=== PATIENT | female | born 2000 | race Two or more races ===

== ENCOUNTER 2019-03-27 06:41 | Inpatient (IN) | payer SELFPAY ==
[2019-03-27 08:10] LABS: BACTERIA (WET MOUNT) 3+ BACTERIA SEEN; EPITHELIALS (WET MOUNT) 4+ EPITHELIALS SEEN; RBCS (WET MOUNT) FEW RBCS SEEN; T.VAGINALIS (WET MOUNT) NO TRICHOMONAS SEEN; WBCS (WET MOUNT) 3+ WBCS SEEN; YEAST (WET MOUNT) NO YEAST SEEN
[2019-03-27] MEDS: RINGERS SOLUTION,LACTATED 1,000 ML IV PRN ×2 (08:25→11:37)
[2019-03-27] MEDS ORDERED: BETAMET ACET/BETAMET NA INJ 6 MG/1 ML ONE (08:26)
[2019-03-27] MEDS ORDERED: PENICILLIN G-K 5 MILLION UNIT VIAL ONE ×4 (08:42→21:21)
[2019-03-27] MEDS ORDERED: OXYTOCIN 10 UNIT/ML VIAL ONE (08:42)
[2019-03-27] MEDS ORDERED: OXYTOCIN/NORMAL SALINE 20 UNIT/1,000 ML RTUINJ ONE (08:42)
[2019-03-27] MEDS ORDERED: LIDOCAINE 1% INJ-PF (10 MG/ML) 30 ML SDV ONE (08:42)
[2019-03-27] MEDS ORDERED: MISOPROSTOL 0.2 MG TABLET ONE (08:42)
[2019-03-27] MEDS ORDERED: MAGNESIUM SULFATE 4 GM/100 ML RTUPB IV ONE ×2 (08:43→09:00)
[2019-03-27] MEDS ORDERED: MAGNESIUM SULFATE 20 GM/500 ML RTUINJ IV ONE ×2 (08:43→19:05)
[2019-03-27] MEDS ORDERED: PENICILLIN G POTASSIUM 5,000,000 UNIT in DEXTROSE 5%-WATER 100 ML IV ONE (08:50)
[2019-03-27] MEDS ORDERED: PROMETHAZINE HCL INJ 25 MG/1 ML VIAL ONE (09:02)
[2019-03-27] MEDS ORDERED: NALBUPHINE HCL INJ 10 MG/1 ML AMPULE ONE ×2 (09:02→13:06)
--- NOTE | 2019-03-27 09:13 | Admission Physical ---
Datetime Report Generated by CPN: 03/27/2019 09:13 CURRENT ADMISSION Chief Complaint: Uterine Contractions; Maternal Discomfort Indication for Induction: Not Applicable Admit Impression : , Intrauterine Admit Plan: Admit to Unit; Initiate Labor Protocol ALLERGIES Medication Allergies: No Known Allergies (03/27/2019) OBSTETRICAL HISTORY EDC: 05/08/2019 00:00 : 1 Para: 0 Term: 0 : 0 SAB: 0 IAB: 0 Ectopic: 0 Livin Cesareans: 0 VBACs: 0 Multiple Births: 0 Current Procedures: Ultrasound Obstetrical History Comments: G1- current SEE RECORDS Alcohol: No Marijuana : No Cocaine: No Other Illicit Drugs: No Cigarettes: Never Smoker. [id number] PHYSICAL EXAM General: Normal HEENT: Deferred Neurologic: Normal Thyroid: Deferred Heart: Normal Lungs: Normal Breast: Deferred Back: Deferred Abdomen: Normal Genitourinary Exam: Normal Extremities: Normal DTRs: Deferred Pelvic Type: Adequate Physical Exam Comments: no significant findings Cervical exams per RN as noted Vital Signs: Reviewed FETUS A EGA: 34.0 Monitoring: External US FHR- Baseline: 130 Variability: Moderate 6-25bpm Accelerations: 15X15 Decelerations: None FHR Category: Category I Presentation: Vertex Admit Comment: Pt presented with contractions, she is 34.0 by definite LMP 08/01/18. She has only had one visit at [facility] yesterday, no labs done. She has not been seen by any other medical facility this . No U/S available. She denies any significant medical history, surgery, hospitalization. She is yina regularly and requests pain medication, plans for epidural if labor continues. Pt recieved Betamethasone injection, Mag Sulfate ordered, GBS, GC collected, US ordered. Martii used for communication. Plan per Dr. Haile. PLANS FOR LABOR AND DELIVERY Labor and Delivery: None Pain Management: Epidural Feeding Preference: Breast Benefit of Breast Feed Discussed: Yes INFORMED CONSENT Assignment: Patricia Shaikh MD Signature: with User ID: [email or web address] : with User ID: [email or web address]
[2019-03-27] MEDS ORDERED: MAGNESIUM SULFATE 20 GM/500 ML RTUINJ IV PRN (09:30)
[2019-03-27 09:33] LABS: CHLAM PCR DETECTED (NOT DETECT)
[2019-03-27] MEDS ORDERED: AZITHROMYCIN INJ 500 MG VIAL IV ONE ×2 (09:40→09:55)
[2019-03-27] MEDS ORDERED: METRONIDAZOLE 500 MG TABLET PO ONE (09:46)
[2019-03-27] MEDS ORDERED: METRONIDAZOLE 500 MG TABLET ONE (09:55)
[2019-03-27 10:12] LABS: ABSOLUTE LYMPHOCYTES (AUTO) 2.2 10^3/uL (0.5-4.7); ABSOLUTE MONOCYTES (AUTO) 0.4 10^3/uL (0.1-1.4); ABSOLUTE NEUT (AUTO) 4.8 10^3/uL (1.7-8.2); BASOPHILS % (AUTO) 0.4 % (0-2); EOSINOPHILS % (AUTO) 0.5 % (0-6); HEMATOCRIT 32.2 % (36.0-47.0); HEMOGLOBIN 10.9 g/dL (12.0-15.5); LYMPHOCYTES % (AUTO) 29.4 % (13-45); MEAN CORPUSCULAR HEMOGLOBIN 31.3 pg (27.0-33.4); MEAN CORPUSCULAR HGB CONC 33.8 g/dL (32.0-36.0); MEAN CORPUSCULAR VOLUME 93 fl (80-97); MONOCYTES % (AUTO) 5.1 % (3-13); RED BLOOD COUNT 3.48 10^6/uL (3.72-5.28); RED CELL DISTRIBUTION WIDTH 13.4 % (11.5-14.0); SEGMENTED NEUTROPHILS % (AUTO) 64.6 % (42-78); TOTAL CELLS COUNTED % (AUTO) 100 %; WHITE BLOOD COUNT 7.4 10^3/uL (4.0-10.5)
[2019-03-27 10:33] LABS: PLATELET COUNT 75 10^3/uL (150-450)
[2019-03-27 10:41] LABS: APPEARANCE,URINE SLIGHTLY-CLOUDY; BILIRUBIN,URINE NEGATIVE (NEGATIVE); COLOR,URINE YELLOW; GLUCOSE, URINE NEGATIVE (NEGATIVE); KETONES,URINE NEGATIVE (NEGATIVE); LEUKOCYTE ESTERASE,URINE MODERATE (NEGATIVE); NITRITE,URINE NEGATIVE (NEGATIVE); PROTEIN,URINE 30 mg/dL (NEGATIVE); URINE SPECIFIC GRAVITY 1.019; UROBILINOGEN,URINE NEGATIVE mg/dL (<2.0)
[2019-03-27 10:59] LABS: URINE AMPHETAMINES SCREEN NEGATIVE; URINE BARBITURATES SCREEN NEGATIVE; URINE BENZODIAZEPINES SCREEN NEGATIVE; URINE COCAINE SCREEN NEGATIVE; URINE MARIJUANA (THC) SCREEN NEGATIVE; URINE METHADONE SCREEN NEGATIVE; URINE PHENCYCLIDINE SCREEN NEGATIVE
--- NOTE | 2019-03-27 11:40 | RADIOLOGY REPORT (SQ) ---
EXAM DESCRIPTION: U/S OB 14+ TRNABD 1GES W/O DOP COMPLETED DATE/TIME: 03/27/2019 11:01 am REASON FOR STUDY: complete ob u/s with dating COMPARISON: None. TECHNIQUE: Static and Dynamic grayscale imaging performed of gravid uterus using transabdominal appr oac. Additional selected color Doppler and spectral images recorded. All stored on PACS. LIMITATIONS: None. FINDINGS: FETUSES SEEN:1 EGA: 36 weeks 5 days. Calculated using BPD,FL,HC,AC documented on images. Clinical dates are unknown . ANALI: 04/19/2019 EFW: 2,869 grams PERCENTILE: 75th CALI: 6.8 PLACENTA: Fundal in location GRADE: I PRESENTATION: Cephalic. ANATOMY: HEART RATE: 137 beats per minute. FOUR CHAMBER HEART: Not visualized. THREE VESSEL CORD: Yes. CORD INSERTION: Not visualized. KIDNEYS AND BLADDER: Visualized. Appear normal. STOMACH: Visualized. Appears normal. SPINE: Not visualized. BRAIN AND LATERAL VENTRICLES: Not visualized. OTHER: No other significant finding. MATERNAL ADNEXA: Maternal ovaries not visualized. CERVICAL LENGTH: 3.3 cm. Closed. OTHER: No other significant finding. IMPRESSION: Limited study due to age and lie. Estimated gestational age is 36 weeks 5 days. No visualize anomalies. Trimester of : Third trimester - 28 weeks to delivery. TECHNICAL DOCUMENTATION: JOB ID: [id number] [employer]- All Rights Reserved Reading location - IP/workstation name: [email or web address]
[2019-03-27] MEDS: PENICILLIN G POTASSIUM 2,500,000 UNIT in DEXTROSE 5%-WATER 50 ML IV SCH ×3 (13:20→21:35)
[2019-03-27] MEDS ORDERED: MORPHINE SULFATE 10 MG/ML INJ IM ONE (16:41)
[2019-03-27] MEDS ORDERED: MORPHINE SULFATE 10 MG/ML INJ ONE (16:43)
[2019-03-27] MEDS ORDERED: CEFTRIAXONE INJ 1000 MG VIAL ONE (16:43)
[2019-03-27] MEDS: BETAMET ACET/BETAMET NA INJ 6 MG/1 ML IM SCH (17:09)
[2019-03-27] MEDS ORDERED: ACETAMINOPHEN 325 MG TABLET PO ONE (20:10)
[2019-03-27] MEDS ORDERED: ACETAMINOPHEN 325 MG TABLET ONE (20:28)
[2019-03-28] MEDS ORDERED: PENICILLIN G-K 5 MILLION UNIT VIAL ONE ×2 (01:17→05:22)
[2019-03-28] MEDS: PENICILLIN G POTASSIUM 2,500,000 UNIT in DEXTROSE 5%-WATER 50 ML IV SCH ×3 (01:24→13:15)
[2019-03-28 01:25] LABS: ABSOLUTE BASOPHILS # (AUTO) 0.1 10^3/uL (0.0-0.2); ABSOLUTE LYMPHOCYTES (AUTO) 1.9 10^3/uL (0.5-4.7); ABSOLUTE MONOCYTES (AUTO) 0.6 10^3/uL (0.1-1.4); BASOPHILS % (AUTO) 0.5 % (0-2); LYMPHOCYTES % (AUTO) 15.3 % (13-45); MEAN CORPUSCULAR HEMOGLOBIN 30.6 pg (27.0-33.4); MEAN CORPUSCULAR HGB CONC 33.3 g/dL (32.0-36.0); MEAN CORPUSCULAR VOLUME 92 fl (80-97); MONOCYTES % (AUTO) 4.9 % (3-13); RED BLOOD COUNT 3.59 10^6/uL (3.72-5.28); RED CELL DISTRIBUTION WIDTH 13.2 % (11.5-14.0); SEGMENTED NEUTROPHILS % (AUTO) 79.3 % (42-78); TOTAL CELLS COUNTED % (AUTO) 100 %; WHITE BLOOD COUNT 12.6 10^3/uL (4.0-10.5)
[2019-03-28 01:31] LABS: PLATELET COUNT 76 10^3/uL (150-450)
[2019-03-28] MEDS ORDERED: DIPHENHYDRAMINE HCL 50 MG/ML VIAL ONE (04:40)
[2019-03-28] MEDS ORDERED: BETAMET ACET/BETAMET NA INJ 6 MG/1 ML ONE (04:45)
[2019-03-28] MEDS ORDERED: CEFTRIAXONE INJ 1000 MG VIAL ONE (05:33)
[2019-03-28] MEDS: CEFTRIAXONE INJ 1000 MG VIAL IV SCH ×2 (05:53→13:22)
[2019-03-28] MEDS ORDERED: MISOPROSTOL 0.2 MG TABLET PR ONE (08:23)
[2019-03-28] MEDS ORDERED: OXYTOCIN/NORMAL SALINE 20 UNIT/1,000 ML RTUINJ IV PRN (08:57)
[2019-03-28] MEDS ORDERED: ACETAMINOPHEN WITH CODEINE #3 TABLET PO PRN (08:57)
[2019-03-28] MEDS ORDERED: ZOLPIDEM TARTRATE 5 MG TABLET PO PRN (08:57)
[2019-03-28] MEDS ORDERED: DIPH/PERTUSS(ACELL)/TETANUS VAC/PF 0.5 ML SYR (>=10YO) IM PRN (08:57)
[2019-03-28] MEDS ORDERED: DIBUCAINE 1% OINTMENT 56 GM TP PRN (08:57)
[2019-03-28] MEDS ORDERED: MEASLES,MUMPS&RUBELLA VACC/PF 0.5 ML VIAL SUBCUT PRN (08:57)
[2019-03-28] MEDS ORDERED: BENZOCAINE/MENTHOL AEROSOL SPRAY 56 ML TOP PRN (08:57)
[2019-03-28] MEDS ORDERED: IBUPROFEN 800 MG TABLET ONE (09:22)
[2019-03-28 11:36] LABS: HEPATITIS C VIRUS AB 0.2 s/co ratio (0.0-0.9)
[2019-03-28] MEDS: DOCUSATE SODIUM 100 MG CAPSULE PO SCH ×2 (13:14→19:34)
[2019-03-28] MEDS: FERROUS SULFATE 325 MG TABLET PO SCH ×2 (13:15→19:34)
[2019-03-28] MEDS: PRENATAL VITAMIN W DHA CAPSULE PO SCH (13:15)
[2019-03-28] MEDS: SENNOSIDES/DOCUSATE 8.6-50 MG 1 EACH TABLET PO SCH (13:15)
[2019-03-28] MEDS: BETAMET ACET/BETAMET NA INJ 6 MG/1 ML IM SCH (13:17)
[2019-03-28] MEDS: IBUPROFEN 800 MG TABLET PO SCH ×2 (13:59→21:23)
[2019-03-29] MEDS: IBUPROFEN 800 MG TABLET PO SCH ×3 (05:28→21:30)
[2019-03-29 06:25] LABS: HEMATOCRIT 24.4 % (36.0-47.0); MEAN CORPUSCULAR HEMOGLOBIN 31.2 pg (27.0-33.4); MEAN CORPUSCULAR HGB CONC 33.4 g/dL (32.0-36.0); MEAN CORPUSCULAR VOLUME 93 fl (80-97); RED BLOOD COUNT 2.62 10^6/uL (3.72-5.28); RED CELL DISTRIBUTION WIDTH 13.3 % (11.5-14.0); WHITE BLOOD COUNT 9.8 10^3/uL (4.0-10.5)
[2019-03-29 06:35] LABS: HEMOGLOBIN 8.1 g/dL (12.0-15.5)
[2019-03-29 06:36] LABS: PLATELET COUNT 49 10^3/uL (150-450)
[2019-03-29 08:10] LABS: HEPATITS B SURFACE ANTIGEN Negative (Negative)
[2019-03-29] MEDS: SENNOSIDES/DOCUSATE 8.6-50 MG 1 EACH TABLET PO SCH (10:45)
[2019-03-29] MEDS: FERROUS SULFATE 325 MG TABLET PO SCH ×2 (10:45→17:44)
[2019-03-29] MEDS: PRENATAL VITAMIN W DHA CAPSULE PO SCH (10:45)
[2019-03-29] MEDS: DOCUSATE SODIUM 100 MG CAPSULE PO SCH ×2 (10:45→17:44)
--- NOTE | 2019-03-29 12:05 | PDOC PROGRESS REPORT ---
Subjective-OB Progress Note for:: 03/29/19 Subjective: Pt is PPD #1, Reese used for communication, pt resting denies pain, reports normal bleeding, no difficulty voiding and regular diet. She is not aware of any family history of bleeding or blood disorders. She is bottlefeeding. Denies questions or concerns. Physical Exam (OB) Vital Signs: Temp Pulse Resp BP Pulse Ox 97.9 F 79 16 100/56 L 100 03/29/19 09:00 03/29/19 09:00 03/29/19 09:00 03/29/19 09:00 03/29/19 09:00 Intake & Output 03/28/19 03/29/19 03/30/19 06:59 06:59 06:59 Intake Total 1284 1000 Balance 1284 1000 Weight 59.9 kg - Lochia Lochia Amount: Small 10-25 ml Lochia Color: Rubra/Red - Abdomen Description: Tender, Soft Hernia Present: No Fundal Description: Firm, Midline Fundal Height: u/u - u/2 Objective-Diagnostic Laboratory: 03/29/19 05:45 03/29/19 05:45 WBC 9.8 RBC 2.62 L Hgb 8.1 L D Hct 24.4 L MCV 93 MCH 31.2 MCHC 33.4 RDW 13.3 Plt Count 49 L Assessment and Plan(PN) - Assessment and Plan (1) Thrombocytopenia Is this a current diagnosis for this admission?: Yes Plan: Hematology consult placed. Informed pt that her Platelets were abnormally low, she denies knowledge of personal or family history. (2) Second-degree perineal laceration during delivery Is this a current diagnosis for this admission?: Yes (3) Vacuum-assisted vaginal delivery Is this a current diagnosis for this admission?: Yes (4) Supervision of with insufficient care, unspecified trimester Is this a current diagnosis for this admission?: Yes - Time Spent with Patient Time with patient: Less than 15 minutes Medications reviewed and adjusted accordingly: Yes - Disposition Anticipated Discharge: Home Within: within 24 hours, within 48 hours
--- NOTE | 2019-03-29 13:51 | Progress Note ---
Provider Note Provider Note: I met with the patient briefly today. I was consulted for thrombocytopenia. However, after over 15 minutes trying to connect using the "[employer]" Danish translation system, I was unable to connect with combat engineer. I discussed patient with Dr. Florez and I looked and the peripheral blood smear myself. Her estimated manual platelet count was 150-170K. This may be pseudothrombocytopenia. I have asked lab to draw using platelet clumping protocol. I will try again to see patient tomorrow morning.
[2019-03-29] MEDS: ACETAMINOPHEN WITH CODEINE #3 TABLET PO PRN (17:44)
[2019-03-30] MEDS: ACETAMINOPHEN WITH CODEINE #3 TABLET PO PRN (05:27)
[2019-03-30] MEDS: IBUPROFEN 800 MG TABLET PO SCH (05:54)
[2019-03-30 06:13] LABS: ABSOLUTE BASOPHILS # (AUTO) 0.1 10^3/uL (0.0-0.2); ABSOLUTE EOSINOPHILS # (AUTO) 0.1 10^3/uL (0.0-0.6); ABSOLUTE LYMPHOCYTES (AUTO) 2.3 10^3/uL (0.5-4.7); ABSOLUTE MONOCYTES (AUTO) 0.6 10^3/uL (0.1-1.4); ABSOLUTE NEUT (AUTO) 7.2 10^3/uL (1.7-8.2); BASOPHILS % (AUTO) 1.3 % (0-2); EOSINOPHILS % (AUTO) 0.5 % (0-6); HEMATOCRIT 25.8 % (36.0-47.0); HEMOGLOBIN 8.7 g/dL (12.0-15.5); LYMPHOCYTES % (AUTO) 22.4 % (13-45); MEAN CORPUSCULAR HEMOGLOBIN 31.2 pg (27.0-33.4); MEAN CORPUSCULAR HGB CONC 33.8 g/dL (32.0-36.0); MEAN CORPUSCULAR VOLUME 93 fl (80-97); MONOCYTES % (AUTO) 5.8 % (3-13); RED BLOOD COUNT 2.79 10^6/uL (3.72-5.28); RED CELL DISTRIBUTION WIDTH 13.3 % (11.5-14.0); TOTAL CELLS COUNTED % (AUTO) 100 %; WHITE BLOOD COUNT 10.3 10^3/uL (4.0-10.5)
[2019-03-30 06:40] LABS: PLATELET COUNT 70 10^3/uL (150-450)
--- NOTE | 2019-03-30 09:14 | PDOC CONSULTATION ---
Consultation Consult Date: 03/30/19 Provider Consulted: DANIEL CARVALHO Consult reason:: Hematology/Oncology consultation was requested for thrombocytopenia History of Present Illness Admission Date/PCP: 03/27/19 08:51 History of Present Illness: ARMIDA CASTILLO is a 18 year old female who gave 2 days ago to her first child. This was her first . Her baby boy is doing well. She states that she has never been told that her blood counts were low and does not know what platelets are or what they do. She denies any history of bleeding problems. I have no CBCs prior to this admission and she states that she does not know if she has ever have blood counts drawn before. She denies any difficulty during this . Today, she states that she has had a normal amount of bleeding after childbirth and has some pain in her left side that is not going away. She is unsure what the pain is from. She is having normal BMs since baby was born. Past Medical History Medical History: None Past Surgical History Past Surgical History: Reports: None Social History Information Source: Patient Lives with: Spouse/Significant other Smoking Status: Never Smoker Frequency of Alcohol Use: None Drugs: None Hx Prescription Drug Abuse: No Past Social History Note: Patient is and lives with . She is not currently working. 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 Family History Parental Family History Reviewed: Yes - Father of unknown cause. Mother still living. Children Family History Reviewed: NA Sibling(s) Family History Reviewed.: Yes Medication/Allergy Home Medications: No Home Medications 03/27/19 Vit,Calc76/Iron/Folic [Prenatabs Rx Tablet] 1 tab PO DAILY 03/27/19 Allergies/Adverse Reactions: No Known Allergies Allergy (Unverified 03/27/19 07:57) Review of Systems Constitutional: ABSENT: fever(s), headache(s) Eyes: ABSENT: visual disturbances Ears: ABSENT: hearing changes Nose, Mouth, and Throat: ABSENT: sore throat Cardiovascular: ABSENT: chest pain Respiratory: ABSENT: dyspnea Gastrointestinal: PRESENT: as per HPI Genitourinary: ABSENT: dysuria Integumentary: ABSENT: rash Hematologic/Lymphatic: ABSENT: easy bleeding Physical Exam Vital Signs: Temp Pulse Resp BP Pulse Ox 98.7 F 93 18 100/69 100 03/29/19 19:56 03/29/19 19:56 03/29/19 19:56 03/29/19 19:56 03/29/19 19:56 Intake & Output 03/29/19 03/30/19 03/31/19 06:59 06:59 06:59 Intake Total 1000 1000 Balance 1000 1000 General appearance: PRESENT: no acute distress, well-developed, well-nourished Exam: 18 year old female. Exam was performed with the assistance of the "[employer]" translation system, as patient only speaks Serbian. Head exam: PRESENT: normocephalic Eye exam: PRESENT: EOMI, PERRLA Mouth exam: PRESENT: tongue midline Neck exam: ABSENT: lymphadenopathy, tenderness Respiratory exam: PRESENT: clear to auscultation nanci, unlabored Cardiovascular exam: PRESENT: RRR GI/Abdominal exam: PRESENT: soft, tenderness. ABSENT: organolmegaly Extremities exam: ABSENT: pedal edema Musculoskeletal exam: PRESENT: normal inspection Neurological exam: PRESENT: alert, awake Psychiatric exam: PRESENT: appropriate affect Skin exam: PRESENT: normal color Results Laboratory Results: 03/30/19 06:03 03/30/19 06:03 WBC 10.3 RBC 2.79 L Hgb 8.7 L Hct 25.8 L MCV 93 MCH 31.2 MCHC 33.8 RDW 13.3 Plt Count 70 L Seg Neutrophils % 70.0 03/27/19 10:55 Catheterized Urine Urine Culture - Final Mixed Urogenital Shea 03/27/19 08:28 Vaginal/Anorectal Group B Streptococcus Culture - Final NO GROUP B STREPTOCOCCUS RECOVERED Impressions: Obstetrics Ultrasound 03/27/19 00:00 IMPRESSION: Limited study due to age and lie. Estimated gestational age is 36 weeks 5 days. No visualize anomalies. Trimester of : Third trimester - 28 weeks to delivery. I reviewed her peripheral blood smear and found no evidence of thrombocytopenia. Estimated PLT count was 150. Today's CBC was drawn in Na Citrate tube to avoid platelet clumping and automated PLT count still only 70. Assessment & Plan - Diagnosis (1) Thrombocytopenia Is this a current diagnosis for this admission?: Yes Plan: I have explained that sometimes platelets are lower with childbirth. I have also explained to the patient that we usually do not see problems with bleeding until PLT are <30. At this point, I would not recommend any further work-up or treatment. I would like to see her again in the office in about 6 weeks and repeat the CBC at that time. I will arrange. I am OK with discharge today, from my standpoint. - Plan Summary Plan Summary: Thank you for this consultation. Please call with any other concerns. Patient was discussed with the nurse cargo handler on the floor this morning.
--- NOTE | 2019-03-30 09:28 | PDOC DISCHARGE SUMMARY ---
Final Diagnosis Discharge Date: 03/30/19 - PP Day#2, doing well, Seen by Dr Solano this morning, she is clearing pt to go home today w/ follow up in her office to repeat CBC in 6 wks. Pt with very limited PNC, +chlamydia this , tx'd per pharmacy. O+, Rubella Immune, Breast and bottlefeeding - Final Diagnosis (1) Chlamydia infection affecting Is this a current diagnosis for this admission?: Yes (2) Thrombocytopenia Is this a current diagnosis for this admission?: Yes (3) Supervision of with insufficient care, unspecified trimester Is this a current diagnosis for this admission?: Yes (4) Vacuum-assisted vaginal delivery Is this a current diagnosis for this admission?: Yes (5) Second-degree perineal laceration during delivery Is this a current diagnosis for this admission?: Yes Discharge Data - Discharge Medication Prescriptions: Ferrous Sulfate [Feosol 325 mg Tablet] 325 mg PO DAILY #30 tablet Ibuprofen [Motrin 800 mg Tablet] 800 mg PO Q8 #60 tablet Home Medications: Vit,Calc76/Iron/Folic [Prenatabs Rx Tablet] 1 tab PO DAILY 03/27/19 Ferrous Sulfate [Feosol 325 mg Tablet] 325 mg PO DAILY #30 tablet 03/30/19 Ibuprofen [Motrin 800 mg Tablet] 800 mg PO Q8 #60 tablet 03/30/19 Reason(s) for Admission: Onset of Labor Procedures: None Intrapartum Procedure(s): Spontaneous Vaginal Delivery Complication(s): Laceration-Periurethral Laceration-Degree: 1st - Diagnosis Test Laboratory: Temp Pulse Resp BP Pulse Ox 98.7 F 93 18 100/69 100 03/29/19 19:56 03/29/19 19:56 03/29/19 19:56 03/29/19 19:56 03/29/19 19:56 03/27/19 03/27/19 03/27/19 07:00 09:39 10:11 RBC 3.48 L Hgb 10.9 L Hct 32.2 L Urine Opiates Screen Cancelled NEGATIVE 03/28/19 03/29/19 03/30/19 01:06 05:45 06:03 RBC 3.59 L 2.62 L 2.79 L Hgb 11.0 L 8.1 L D 8.7 L Hct 33.0 L 24.4 L 25.8 L Urine Opiates Screen - Discharge information/Instructions Discharge Activity: Activity As Tolerated, No Lifting Over 10 Pounds, Pelvic Rest Discharge Diet: As Tolerated, Regular Disposition: HOME, SELF-CARE Follow up with: [facility] in: 4, Weeks - Pt [facility] in 4-6 wks, Also to f/u with Dr Solano in 4 wks for CBC chk.
[2019-03-30 10:43] VITALS: BP 100/69
[2019-03-30] MEDS: SENNOSIDES/DOCUSATE 8.6-50 MG 1 EACH TABLET PO SCH (12:21)
[2019-03-30] MEDS: PRENATAL VITAMIN W DHA CAPSULE PO SCH (12:21)
[2019-03-30] MEDS: FERROUS SULFATE 325 MG TABLET PO SCH (12:21)
[2019-03-30] MEDS: DOCUSATE SODIUM 100 MG CAPSULE PO SCH (12:21)
--- NOTE | 2019-04-01 13:14 | Delivery Summary ---
Del Sum A-C Datetime Report Generated by CPN: 04/01/2019 13:14 DELIVERY PERSONNEL DELIVERY PERSONNEL: [id number] Delivery Doctor:: Patricia Shaikh MD Anesthesiologist:: Vero Law MD Labor and Delivery Nurse:: Tete Cohn RNspace planner Nurse:: Maryan Boyd RN Nursery Nurse:: Milvia Ruelas RN Human Resources Department Supervisor/AIRCRAFT CLEANER: Natividad Kelly, EQUIPMENT SERVICE TECHNICIAN MATERNAL INFORMATION Delivery Anesthesia: None Medications After Delivery: Pitocin Bolus-Please Comment; Cytotec 1000mcg Per Rectum/Vagina Meds After Delivery Comment: 1000mcg @ [address] Younger Estimated Blood Loss (ml): 200 Delivery QBL: 200 Maternal Complications: Other Complication Details: terminal mec/1 visit Complication Details: Labor Provider Comments: VAVD of a viable male at 0815 w/ DEL w/left compound hand presentation; APGARS 8, 8; lac repaired LABOR SUMMARY EDC: 05/08/2019 00:00 No. Babies in Womb: 1 Attempted: No Labor Anesthesia: None LABOR INFORMATION Reason for Induction: Not Applicable Onset of Labor: 03/28/2019 00:23 Complete Dilatation: 03/28/2019 06:31 Oxytocin: N/A Group B Beta Strep: 1 NO GROUP B STREPTOCOCCUS RECOVERED Group B Beta Strep: unknown Antibiotics # of Doses: 10 Antibiotics Time of Last Dose: 0553 Name of Antibiotic Given: PCN/Flagyl/Rocephin/Zithromax Steroids Given: Full Course; < 24 Hours before Delivery Reason Steroids Not Administered: Imminent Delivery MEMBRANES Membranes Rupture Method: Spontaneous Rupture of Membranes: 03/28/2019 02:54 Length of Rupture (hr): 5.35 Amniotic Fluid Color: Clear Amniotic Fluid Amount: Moderate Amniotic Fluid Odor: Normal STAGES OF LABOR Stage 1 hr: 6 Stage 1 min: 8 Stage 2 hr: 1 Stage 2 min: 44 Stage 3 hr: 0 Stage 3 min: 5 Total Time in Labor hr: 7 Total Time in Labor min: 57 VAGINAL DELIVERY Episiotomy: None Laceration #1: Vaginal Laceration Extension #1: Second Degree Laceration #2: Vaginal Laceration Extension #2: Second Degree Laceration #3: Periurethral Laceration Extension #3: First Degree Other Laceration: R Vaginal Wall w/ repair. Periurethral w/ repair. Laceration Repair: Yes Laceration Repair Note: Right lateral vaginal wall lac and right periurethral lac repaired w/3-0 chromic; midline/left vaginal 2nd deg lac repaired w/2-0 Vicryl Sponge Count Correct: Yes Sharps Count Correct: Yes CSECTION DELIVERY CSection Incision: Lower Uterine Transverse BABY A INFORMATION Infant Delivery Date/Time: 03/28/2019 08:15 Method of Delivery: Vaginal Born in Route : No : N/A Forceps: N/A Vacuum Extraction: Successful Shoulder Dystocia : No ASSISTED DELIVERY BABY A Indication for Assisted Delivery: maternal exhaustion Station Vacuum/Forcep Apply: +2 Position Vacuum/Forcep Apply: Right Occipital Anterior Vacuum Number of Pulls: 12 Vacuum Number of PopOffs: 1 Vacuum Maximum Pressure Obtained: 500 mm/Hg Reduce Pressure btwn Ctx: Yes Vacuum Flexo Press Operator: Kiwi Total Time Vacuum Applied: 20 Vacuum/Forceps Comment: Vacuum placed at +2 station; (12) pulls at 500 mmhg and released in between contractions; (1) pop off and vacuum not replaced PRESENTATION/POSITION BABY A Presentation: Cephalic Presentation: Cephalic Cephalic Presentation: Vertex Vertex Position: Left Occipital Anterior Breech Presentation: N/A PLACENTA INFORMATION BABY A Placenta Delivery Time : 03/28/2019 08:20 Placenta Method of Delivery: Spontaneous Placenta Status: Delivered SCORES BABY A Heart Rate 1 min: >100 bpm Resp Effort 1 min: Good Cry Reflex Irritability 1 min: Cough or Sneeze or Pulls Away Muscle Tone 1 min: Some Flexion of Extremities Color 1 min: Body [place], Extremities Blue Resuscitation Effort 1 min: Tactile Stimulation SCORE 1 MIN: 8 Heart Rate 5 min: >100 bpm Resp Effort 5 min: Good Cry Reflex Irritability 5 min: Cough or Sneeze or Pulls Away Muscle Tone 5 min: Some Flexion of Extremities Color 5 min: Body [place], Extremities Blue Resuscitation Effort 5 min: Tactile Stimulation SCORE 5 MIN: 8 INFANT INFORMATION BABY A Gestational Age at Delivery: 34.1 Gestational Status: Late - 34- 36.6 Weeks Outcome : Liveborn Condition : Stable Infant Sex: Male IDENTIFICATION BABY A Verification Date/Time: 03/28/2019 09:04 ID Band Number: [id number] Mother's Name Verified: Yes RN Verifying : B Baidy RN Additional Verifying Personnel: V Betitok RN WEIGHT/LENGTH BABY A Infant Birthweight (gm): 3459 Infant Weight (lb): 7 Weight (oz): 10 Length (in): 20.50 Length (cm): 52.07 CORD INFORMATION BABY A No. Cord Vessels: 3 Nuchal Cord : N/A Cord Blood Taken: Yes-For Eval (Mom's Blood Type - or O+) Infant Suction: None ASSESSMENT BABY A Infant Complications: Multiple Variable Decels Infant Complications- Other: Terminal Meconium Physical Findings at Delivery: Molding of the Head Infant Respirations: Appears Normal Skin to Skin: Yes BABY B INFORMATION : N/A SIGNATURES Signature: with User ID: [email or web address] : I was personally available for consultation and serving as supervising physician for the MLP.
== END 2019-03-30 15:17 | disposition home or self-care (01) | DRG 806 ==
LOC: LC 06:41 → LR 08:51 → 2S 03-28 10:55
PROVIDERS: ADMIT Obstetrics & Gynecology; ATTEND Obstetrics & Gynecology
PROC: 10D07Z6 Extraction of Products of Conception, Vacuum, Via Natural or Artificial Opening (ICD-10-PCS; principal; 2019-03-28)
PROC: 0KQM0ZZ Repair Perineum Muscle, Open Approach (ICD-10-PCS; 2019-03-28)
PROC: 0UQMXZZ Repair Vulva, External Approach (ICD-10-PCS; 2019-03-28)
PROC: 3E0234Z Introduction of Serum, Toxoid and Vaccine into Muscle, Percutaneous Approach (ICD-10-PCS; 2019-03-30)
DX: O60.14X0 Preterm labor third trimester with preterm delivery third trimester, not applicable or unspecified (principal); O98.32 Other infections with a predominantly sexual mode of transmission complicating childbirth; Z37.0 Single live birth; O99.834 Other infection carrier state complicating childbirth; O76 Abnormality in fetal heart rate and rhythm complicating labor and delivery; O77.0 Labor and delivery complicated by meconium in amniotic fluid; O75.81 Maternal exhaustion complicating labor and delivery; O71.82 Other specified trauma to perineum and vulva; O72.3 Postpartum coagulation defects; O70.1 Second degree perineal laceration during delivery; A56.8 Sexually transmitted chlamydial infection of other sites; D69.6 Thrombocytopenia, unspecified; Z3A.34 34 weeks gestation of pregnancy; Z23 Encounter for immunization
CPT/HCPCS: 36415; 59025; 76805; 80307; 81001; 83036; 84112; 85025; 85027; 86592; 86701; 86762; 86803; 86804; 86850; 86900; 86901; 87081; 87086; 87210; 87340; 87491; 87591; 88307; 90715; 94760; 96372; J0456; J0696; J0702; J1200; J2270; J2300; J2540; J2550; J2590; J3475; J3490